=== PATIENT | female | born 1935 | race Caucasian/White ===

== ENCOUNTER → 2019-09-06 | Outpatient (CLI) | payer MEDICARE ==
[~2019-09-06] MED LIST: LEVSOD100 PO; PROP120ER
[2019-09-06 10:53] LABS: Albumin, Blood 3.5 g/dL (3.4-5.0); Anion Gap 9 mmol/L (6-16); Blood Urea Nitrogen 35 mg/dL (8-24); Bun/Creatinine Ratio 26.1 (12.0-20.0); CO2, Blood 32 mmol/L (21-32); Calcium, Blood 8.5 mg/dL (8.5-10.1); Chloride, Blood 99 mmol/L (98-108); Creatinine, Blood 1.34 mg/dL (0.40-1.00); Glomerular Filtration Rate 40 (60-); Glucose, Blood 162 mg/dL (70-99); Potassium, Blood 3.9 mmol/L (3.5-5.5); Sodium, Blood 140 mmol/L (136-145)
== END | disposition home or self-care (01) ==
LOC: LAB 09:10 → LAB SHORT 09:10
PROVIDERS: Internal Medicine Nephrology
DX: N18.3 Chronic kidney disease, stage 3 (moderate) (principal); D63.1 Anemia in chronic kidney disease; R73.09 Other abnormal glucose
CPT/HCPCS: 80069; 83036

== ENCOUNTER → 2019-09-25 | Outpatient (CLI) | payer MEDICARE ==
[~2019-09-25] MED LIST changes: +DOCU100 PO
[2019-09-25 14:27] LABS: Albumin, Blood 3.6 g/dL (3.4-5.0); Albumin/Globulin Ratio 0.9 (0.8-1.8); Bilirubin, Direct 0.2 mg/dL (0.0-0.3); Bilirubin, Indirect 0.6 mg/dL (0.1-0.7); Bilirubin, Total 0.8 mg/dL (0.1-1.0); Bun/Creatinine Ratio 37.5 (12.0-20.0); Calcium, Blood 7.2 mg/dL (8.5-10.1); Creatinine, Blood 2.53 mg/dL (0.40-1.00); Globulin, Blood 4.1 g/dL (2.2-4.0); Phosphorus, Blood 3.4 mg/dL (2.5-4.9); Potassium, Blood 2.6 mmol/L (3.5-5.5); Total Protein, Blood 7.7 g/dL (6.4-8.2)
== END | disposition home or self-care (01) ==
LOC: LAB 12:52 → LAB SHORT 12:52
PROVIDERS: Internal Medicine Nephrology
DX: N18.3 Chronic kidney disease, stage 3 (moderate) (principal); D63.1 Anemia in chronic kidney disease; R10.9 Unspecified abdominal pain
CPT/HCPCS: 80053; 82150; 82248; 83690; 84100

== ENCOUNTER 2019-09-28 10:47 | Emergency (ER) | payer MEDICARE ==
[~2019-09-28] VITALS: Ht 175.3 cm; Wt 90.7 kg
[~2019-09-28 10:47] MED LIST changes: -DOCU100 PO
[2019-09-28] MEDS ORDERED: DOCU100 PO (12:16)
== END 2019-09-28 13:46 | disposition home or self-care (01) ==
LOC: ER 10:47
DX: K59.00 Constipation, unspecified (principal); I10 Essential (primary) hypertension; E03.9 Hypothyroidism, unspecified; Z88.8 Allergy status to other drugs, medicaments and biological substances; Z79.899 Other long term (current) drug therapy
CPT/HCPCS: 74018; 99283-25

== ENCOUNTER → 2019-11-06 | Outpatient (CLI) | payer MEDICARE ==
[~2019-11-06] MED LIST changes: +DOCU100 PO
[2019-11-06 14:51] LABS: BASOPHILS ABSOLUTE AUTO 0.05 K/mm3 (0.00-0.23); BASOPHILS PERCENT AUTO 0 % (0-2); EOSINOPHILS ABSOLUTE AUTO 0.22 K/mm3 (0.00-0.68); EOSINOPHILS PERCENT AUTO 2 % (0-6); Hematocrit 44.1 % (33.0-51.0); Hemoglobin 14.4 g/dL (11.5-16.0); IMMATURE GRAN ABSOLUTE AUTO 0.03 K/mm3 (0.00-0.10); IMMATURE GRAN PERCENT AUTO 0 % (0-1); LYMPHOCYTES PERCENT AUTO 16 % (21-46); MONOCYTES ABSOLUTE AUTO 0.65 K/mm3 (0.16-1.47); MONOCYTES PERCENT AUTO 5 % (4-13); Mean Corpuscular HGB Conc 32.7 g/dL (31.5-36.5); Mean Corpuscular Volume 89 fL (80-100); Mean Platelet Volume 11.1 fL (9.1-12.4); NEUTROPHILS ABSOLUTE AUTO 9.66 K/mm3 (1.96-9.15); NEUTROPHILS PERCENT AUTO 77 % (41-73); Platelet Count 324 K/mm3 (150-400); RDW Coefficient Variation 15.4 % (11.7-14.2); RDW Standard Deviation 49.1 fL (35.1-46.3); Red Blood Cell Count 4.97 M/mm3 (3.80-5.20); White Blood Cell Count 12.61 K/mm3 (4.00-11.30)
[2019-11-06 15:08] LABS: Albumin, Blood 3.3 g/dL (3.4-5.0); Albumin/Globulin Ratio 0.8 (0.8-1.8); Bilirubin, Direct 0.1 mg/dL (0.0-0.3); Bilirubin, Indirect 0.4 mg/dL (0.1-0.7); Bilirubin, Total 0.5 mg/dL (0.1-1.0); Bun/Creatinine Ratio 38.3 (12.0-20.0); Calcium, Blood 8.1 mg/dL (8.5-10.1); Magnesium, Blood 2.8 mg/dL (1.6-2.4); Phosphorus, Blood 3.9 mg/dL (2.5-4.9); Potassium, Blood 2.7 mmol/L (3.5-5.5); Total Protein, Blood 7.3 g/dL (6.4-8.2)
== END | disposition home or self-care (01) ==
LOC: LAB SHORT 13:45 → LAB 13:45
PROVIDERS: Internal Medicine Nephrology
DX: N18.3 Chronic kidney disease, stage 3 (moderate) (principal); D63.1 Anemia in chronic kidney disease; N25.81 Secondary hyperparathyroidism of renal origin; E55.9 Vitamin D deficiency, unspecified; E78.00 Pure hypercholesterolemia, unspecified; R76.9 Abnormal immunological finding in serum, unspecified; R94.5 Abnormal results of liver function studies
CPT/HCPCS: 80053; 82248; 83735; 84100; 85025

== ENCOUNTER 2021-11-13 12:05 | Emergency (ER) | payer MEDICARE ==
[~2021-11-13] VITALS: Ht 167.6 cm; Wt 81.7 kg
[2021-11-13 12:25] LABS: BASOPHILS ABSOLUTE AUTO 0.02 K/mm3 (0.00-0.23); BASOPHILS PERCENT AUTO 0 % (0-2); EOSINOPHILS ABSOLUTE AUTO 0.21 K/mm3 (0.00-0.68); EOSINOPHILS PERCENT AUTO 2 % (0-6); Hematocrit 45.7 % (33.0-51.0); Hemoglobin 14.7 g/dL (11.5-16.0); IMMATURE GRAN ABSOLUTE AUTO 0.04 K/mm3 (0.00-0.10); IMMATURE GRAN PERCENT AUTO 0 % (0-1); LYMPHOCYTES ABSOLUTE AUTO 2.17 K/mm3 (0.84-5.20); LYMPHOCYTES PERCENT AUTO 21 % (21-46); MONOCYTES ABSOLUTE AUTO 0.61 K/mm3 (0.16-1.47); MONOCYTES PERCENT AUTO 6 % (4-13); Mean Corpuscular HGB 29.3 pg (26.0-34.0); Mean Corpuscular HGB Conc 32.2 g/dL (31.5-36.5); Mean Corpuscular Volume 91 fL (80-100); Mean Platelet Volume 11.1 fL (9.1-12.4); NEUTROPHILS ABSOLUTE AUTO 7.18 K/mm3 (1.96-9.15); NEUTROPHILS PERCENT AUTO 70 % (41-73); Platelet Count 296 K/mm3 (150-400); RDW Coefficient Variation 16.6 % (11.7-14.2); RDW Standard Deviation 55.2 fL (35.1-46.3); Red Blood Cell Count 5.02 M/mm3 (3.80-5.20); White Blood Cell Count 10.23 K/mm3 (4.00-11.30)
[2021-11-13 12:40] LABS: Albumin, Blood 3.3 g/dL (3.4-5.0); Albumin/Globulin Ratio 0.8 (0.8-1.8); Bun/Creatinine Ratio 25.5 (12.0-20.0); Calcium, Blood 9.6 mg/dL (8.5-10.1); Creatinine, Blood 1.45 mg/dL (0.40-1.00); Globulin, Blood 4.2 g/dL (2.2-4.0); Potassium, Blood 3.1 mmol/L (3.5-5.5); Total Protein, Blood 7.5 g/dL (6.4-8.2)
[2021-11-13] MEDS ORDERED: METO5 PO (13:53)
[2021-11-13] MEDS ORDERED: BUME2 PO (13:54)
[2021-11-13] MEDS ORDERED: DONE10 PO (13:54)
[2021-11-13] MEDS ORDERED: SPIR25 PO (13:54)
[2021-11-13] MEDS ORDERED: POTA10T PO (13:54)
[2021-11-13] MEDS ORDERED: LIVALO2 MG PO (13:54)
[2021-11-13] MEDS ORDERED: METO25ER PO (13:55)
[2021-11-13] MEDS ORDERED: LEVOTHYROXINE50 MC8 PO (13:55)
[2021-11-13] MEDS ORDERED: Aspir 8181 MG PO (13:56)
[2021-11-13] MEDS ORDERED: ALLO100 PO (13:56)
[2021-11-13] MEDS ORDERED: NITR.4SL (13:56)
[2021-11-13] MEDS ORDERED: VITAMIN D310 MC4 PO (13:57)
[2021-11-13] MEDS ORDERED: VITAMIN B125000 MC1 PO (13:57)
[2021-11-13 14:12] LABS: Source, Urine Clean Catch
[2021-11-13 14:21] LABS: Bilirubin, Urine Neg (Neg); Blood, Urine Neg (Neg); Color, Urine Yellow (P-Yellow); Glucose Qualitative, Urine Neg (Neg); Ketones, Urine Neg (Neg); Leukocyte Esterase, Urine Neg (Neg); Nitrite, Urine Neg (Neg); Protein, Urine 1+ (Neg); Urobilinogen, Urine NORM (Normal)
[2021-11-13 14:54] LABS: Appearance, Urine Hazy (Clear); Bacteria Mod /hpf; Hyaline Casts 0-2 /lpf (0-2); Mucus Light (0-Heavy); Red Blood Cells, Urine 0-2 /hpf (0-2); Squamous Epithelial Cells Many /hpf (Few); White Blood Cells, Urine 0-2 /hpf (0-5)
== END 2021-11-13 15:26 | disposition home or self-care (01) ==
LOC: ER 12:05
PROVIDERS: Emergency Medicine
DX: K63.89 Other specified diseases of intestine (principal); F03.90 Unspecified dementia, unspecified severity, without behavioral disturbance, psychotic disturbance, mood disturbance, and anxiety; Z88.1 Allergy status to other antibiotic agents; Z88.8 Allergy status to other drugs, medicaments and biological substances; Z79.899 Other long term (current) drug therapy; Z79.82 Long term (current) use of aspirin
CPT/HCPCS: 74176; 80053; 81001; 85025; 87086; 99284-25; A9270; J7030